=== PATIENT | male | born 1970 | race African-American/Black ===

== ENCOUNTER 2021-10-16 15:19 | Emergency (ER) | payer OTHER ==
[2021-10-16 15:49] VITALS: BP 119/78; PULSE 75; TEMP 97.8; BMI 23.1
== END 2021-10-16 18:02 | disposition home or self-care (01) ==
LOC: JERFT 15:19 → JER 15:19 → JERFT 18:02
DX: B35.3 Tinea pedis (principal)
CPT/HCPCS: 99281-25